=== PATIENT | male | born 1990 | race Two or more races ===

== ENCOUNTER 2020-12-16 10:36 | Emergency (ER) | payer OTHER ==
[~2020-12-16] VITALS: Ht 175.3 cm; Wt 136.1 kg
[2020-12-16 11:31] VITALS: BP 138/99
== END 2020-12-16 13:17 | disposition home or self-care (01) ==
LOC: ER 10:36
DX: S00.03XA Contusion of scalp, initial encounter (principal); V49.9XXA Car occupant (driver) (passenger) injured in unspecified traffic accident, initial encounter; Y93.89 Activity, other specified; Y92.89 Other specified places as the place of occurrence of the external cause; Y99.8 Other external cause status
CPT/HCPCS: 70450